=== PATIENT | male | born 1955 | race Caucasian/White ===

== ENCOUNTER 2016-10-12 05:23 | Day surgery (SDC) | payer BC ==
[~2016-10-12] VITALS: Ht 175.3 cm; Wt 81.6 kg
--- NOTE | ~2016-10-12 | HP ---
PATIENT: BRANDY BORREGO MEDICAL RECORD: [id number] ACCOUNT: [id number] LOCATION:[facility] : 57 ADMISSION DATE: 10/12/16 HISTORY AND PHYSICAL EXAMINATION PRINCIPAL DIAGNOSIS: Right inguinal hernia. There is a history and physical on the chart. The history and physical examination is unchanged when he saw me in the office. The patient has a right inguinal hernia. It is easily reducible. His last right inguinal hernia repair was decades ago. This is a recurrent right inguinal hernia. The history and physical examination is on the chart. 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
--- NOTE | ~2016-10-12 | OP ---
PATIENT NAME: DAT BORREGO MEDICAL RECORD: [id number] :57 LOCATION:[facility] ADMISSION DATE: SURGEON: DAT VICTOR MD DATE OF OPERATION: 10/12/2016 PREOPERATIVE DIAGNOSIS: Recurrent right inguinal hernia. POSTOPERATIVE DIAGNOSIS: Recurrent right direct inguinal hernia. PROCEDURE: Open right recurrent direct inguinal herniorrhaphy with bilayer preperitoneal polypropylene mesh. SURGEON: Dat Victor MD SUPERVISOR FILTER ASSEMBLY: None. BLOOD LOSS: Minimal. ANESTHESIA: General. COMPLICATIONS: None. I saw the patient in the holding area. The site was marked with a marker. The hernia was examined. The testicles were descended. OPERATIVE COURSE: The patient was conveyed to the operating room electively on 10/12/2016. General anesthesia was induced by the anesthesia staff. The abdomen and genitals were sterilely prepped and draped. A transverse incision was accomplished in the right groin. Sharp dissection was carried down through skin and subcutaneous tissues as well as Josh fascia. I incised the external oblique aponeurosis along the direction of its fibers. I bluntly dissected down through the internal oblique and transversus abdominis muscle layers. A preperitoneal pocket was fashioned bluntly. There was no indirect hernia. I reduced a direct hernia in its entirety. Once I was satisfied with the preperitoneal dissection, I cut 2 ovals of a polypropylene mesh. The 2 ovals were sutured together one on top, the other with a running #1 Surgidac. I placed the mesh in the preperitoneal space. Once I was satisfied with placement of the mesh in the preperitoneal space, I allowed the transversus abdominis and internal oblique muscles to come together. These muscles were sutured together with multiple interrupted horizontal mattress 0 Surgidac incorporating a portion of the underlying mesh. The external oblique aponeurosis was closed with running #1 Vicryls. The Josh fascia was approximated with interrupted 3-0 Vicryls. The subdermis was approximated with interrupted 3-0 Vicryls. The skin was approximated with a running intracuticular 4-0 Vicryl. Benzoin and Steri-Strips were applied. The patient was then extubated and conveyed to the post-anesthesia care unit where he was in stable condition. He will be dismissed home on a narcotic analgesic. I will see him in the office in 2-3 weeks. TRANSINT:[id number] Voice Confirmation ID: [id number] DOCUMENT ID: [id number] OPERATIVE REPORT [id number] DAT BORREGO ROBERT MD CC: ANGY PHILLIPS DO [id number] DICTATION DATE: 10/12/161741 MONKEY KEEPER: 10/12/162039 [facility] 10/12/[address] [facility] [address] [place] [id number]
[2016-10-12 06:13] VITALS: BP 132/74; Ht 175.3 cm; Wt 81.6 kg
== END 2016-10-12 15:08 | disposition home or self-care (01) ==
LOC: D.OPS 05:23 → D.PAN 07:30 → D.OPS 07:30
DX: K40.91 Unilateral inguinal hernia, without obstruction or gangrene, recurrent (principal)